=== PATIENT | female | born 1950 | race Caucasian/White ===

== ENCOUNTER → 2017-11-01 | Outpatient (CLI) | payer OTHER ==
[~2017-11-01] MED LIST: ALBU90OI INH; CEPH500 PO; CYCL10 PO; HYDACE5 PO; IBUP800; SIMV40 PO; SIMVASTATIN; SULTRIDS PO; TIOT18 IH; [UNRECOGNIZED DRUG - REMARK]
== END ==
LOC: EDSTATUS 08:54 → PLD 10:41 → LAB SHORT 10:41
DX: D48.5 Neoplasm of uncertain behavior of skin (principal); D04.61 Carcinoma in situ of skin of right upper limb, including shoulder
CPT/HCPCS: 88305

== ENCOUNTER 2020-11-28 09:13 | Day surgery (SDC) | payer OTHER ==
[~2020-11-28] VITALS: Ht 154.9 cm; Wt 82.2 kg
[~2020-11-28 09:13] MED LIST changes: +Norco 5-325 Ta1 EACH PO; +PENVK500 PO
--- NOTE | 2020-11-28 09:36 | NUR ---
Ambulatory in Day Surgery History, Chart, Medications and Allergies reviewed before start of procedure.Patient confirms NPO status and agrees with scheduled surgery. Pre-Op teaching done. Pt verbalizes understanding. Patient States Post-Procedure ride home has been arranged.
--- NOTE | 2020-11-28 10:32 | NUR ---
11/28/20 1032 Zhen Silva PATIENT DETERMINED TO BE ASA APPROPRIATE FOR PROPOFOL SEDATION PRIOR TO START OF PROCEDURE BY DR. BLACKBURN 3-LEAD EKG REVIEWED WITH PHYSICIAN PRIOR TO START OF PROCEDURE. Patient to ENDO 1 History, Chart, Medications and Allergies reviewed before start of procedure.MONITOR INTACT WITH CONTINUOUS PULSE OXIMETRY AND INTERMITTENT BP. O2 VIA N/C INTACT THROUGHOUT SEDATION/PROCEDURE.
--- NOTE | 2020-11-28 10:54 | NUR ---
Discharge instructions reviewed with patient. Patient verbalizes understanding. Copy given to patient to take home.
--- NOTE | 2020-11-28 11:05 | NUR ---
Discharged via wheelchair to private car for ride home.
== END 2020-11-28 11:09 | disposition home or self-care (01) ==
LOC: ORSCMMR 09:13
PROVIDERS: Internal Medicine Gastroenterology
PROC: 0DBN8ZX Excision of Sigmoid Colon, Via Natural or Artificial Opening Endoscopic, Diagnostic (ICD-10-PCS; principal; 2020-11-28 10:00)
PROC: 0DBM8ZX Excision of Descending Colon, Via Natural or Artificial Opening Endoscopic, Diagnostic (ICD-10-PCS; principal; 2020-11-28 10:00)
PROC: 0DBP8ZX Excision of Rectum, Via Natural or Artificial Opening Endoscopic, Diagnostic (ICD-10-PCS; principal; 2020-11-28 10:00)
DX: Z12.11 Encounter for screening for malignant neoplasm of colon (principal); K63.5 Polyp of colon; K62.1 Rectal polyp; K57.30 Diverticulosis of large intestine without perforation or abscess without bleeding; Z86.010 Personal history of colon polyps; J44.9 Chronic obstructive pulmonary disease, unspecified; F17.210 Nicotine dependence, cigarettes, uncomplicated; B19.20 Unspecified viral hepatitis C without hepatic coma; E78.00 Pure hypercholesterolemia, unspecified; Z80.0 Family history of malignant neoplasm of digestive organs
CPT/HCPCS: 88305; J2704; J7120

== ENCOUNTER 2022-07-24 07:18 | Day surgery (SDC) | payer OTHER ==
[~2022-07-24] VITALS: Ht 152.4 cm; Wt 82.1 kg
[2022-07-24] MEDS ORDERED: ALENDRONATE SOD70 MG PO (08:16)
--- NOTE | 2022-07-24 08:25 | NUR ---
Ambulatory in Day Surgery. History, Chart, Medications and Allergies reviewed before start of procedure.Patient States Post-Procedure ride home has been arranged.
--- NOTE | 2022-07-24 08:39 | NUR ---
07/24/22 0839 Tania Nunez HISTORY, CHART, MEDICATIONS AND ALLERGIES REVIEWED BEFORE START OF PROCEDURE. PATIENT CONFIRMS NPO STATUS AND AGREES WITH SCHEDULED PROCEDURE. 3-LEAD EKG REVIEWED WITH PHYSICIAN PRIOR TO START OF PROCEDURE. MONITOR INTACT WITH CONTINUOUS PULSE OXIMETRY,CAPNOGRAPHY, 3-LEAD EKG, INTERMITTENT BP. SUPPLEMENTAL O2 TO BE TITRATED THROUGHOUT PROCEDURE TO MAINTAIN O2 SATURATION ABOVE 90%. PATIENT DETERMINED TO BE ASA APPROPRIATE FOR PROPOFOL SEDATION PRIOR TO START OF PROCEDURE BY DR. BLACKBURN.
--- NOTE | 2022-07-24 09:37 | NUR ---
Patient up to Ambulate independently. Gait steady. Discharge instructions reviewed with patient. Patient verbalizes understanding. Copy given to patient to take home. Discharged via wheelchair to private car for ride home. PT GIVEN GLASSES BACK.
== END 2022-07-24 09:30 | disposition home or self-care (01) ==
LOC: ORSCMMR 07:18 → ORD 09:00 → ORSCMMR 09:00
PROVIDERS: Internal Medicine Gastroenterology
PROC: 0DB68ZX Excision of Stomach, Via Natural or Artificial Opening Endoscopic, Diagnostic (ICD-10-PCS; principal; 2022-07-24 09:00)
DX: K70.30 Alcoholic cirrhosis of liver without ascites (principal); B19.20 Unspecified viral hepatitis C without hepatic coma; K31.9 Disease of stomach and duodenum, unspecified; K44.9 Diaphragmatic hernia without obstruction or gangrene; J44.9 Chronic obstructive pulmonary disease, unspecified; E78.00 Pure hypercholesterolemia, unspecified; F17.210 Nicotine dependence, cigarettes, uncomplicated; Z79.899 Other long term (current) drug therapy
CPT/HCPCS: 88305; 88342; A9270; J2704; J7120